=== PATIENT | male | born 1935 | race Caucasian/White ===

== ENCOUNTER 2018-09-02 09:43 | Day surgery (SDC) | payer OTHER ==
[~2018-09-02] VITALS: Ht 167.6 cm; Wt 48.1 kg
[2018-09-02] VITALS (16 sets, daily range): BP systolic 87–123; BP diastolic 47–61; PULSE 68–83; RESP 14–21; Ht 167.6 cm; Wt 48.1 kg
[2018-09-02] MEDS ORDERED: ASPI-903 PO (10:18)
[2018-09-02] MEDS ORDERED: METO-448 PO (10:18)
[2018-09-02] MEDS ORDERED: LIDOCAINE 1% (MPF) 30 ML INJ ONE (10:27)
[2018-09-02] MEDS ORDERED: BUPIVACAINE 0.25%/EPI (SDV) 30 ML INJ ONE (10:27)
[2018-09-02] MEDS ORDERED: LACTATED RINGER'S 1,000 ML IV SCH (11:00)
--- NOTE | 2018-09-02 11:20 | PREAC ---
Date/Time of Note Date/Time of Note DATE: 09/02/18 TIME: 11:17 Anesthesia Eval and Record Evaluation Time Pre-Procedure Interview DATE: 09/02/18 TIME: 11:17 Age 82 Sex male NPO: 8 hrs Preoperative diagnosis Bilateral Inguinal Hernia Planned procedure Laparoscopic vs Open Bilateral Inguinal Hernia Repair Past Medical History Past Medical History: Includes Cardio: Arrythmia (flutter) Surgery & Anesthesia Issues No known issue Meds Anticoagulation: No Beta Zoë within 24 hr: No Reason Beta Zoë not given: Pt. not on B-Zoë Reported Medications Metoprolol Tartrate* (Lopressor*) 25 Mg Tab, 25 MG PO DAILY, #60 TAB 09/02/18 Aspirin* (Aspirin* Chew) 81 Mg Tab.chew, 81 MG PO DAILY, TAB.CHEW 09/02/18 Current Medications Lactated Ringer's 1,000 ml @ 25 mls/hr Q24H IV ; Start 09/02/18 at 11:00 Meds reviewed: Yes Allergies Coded Allergies: No Known Allergy (Unverified , 09/02/18) Allergies Reviewed: Yes Labs/Studies Labs Reviewed: Reviewed by anesthesiologist test: N/A Pre-procedure Exam Last vitals Vital Signs Date Temp Pulse Resp B/P (MAP) Pulse Ox O2 O2 Flow FiO2 Time Delivery Rate 09/02/18 97.0 82 16 123/61 98 Room Air 10:44 (81) Airway: Adequate mouth opening, Adequate thyromental dist Mallampati: Mallampati II Teeth: Normal Lung: Normal Heart: Normal ASA Physical Status ASA physical status: 3 Emergency: None Planned Anesthetic General/MAC: ETT Nerve block: TAP (bilateral) Planned Pain Management Single shot nerve block, Parenteral pain med Pre-operative Attestations Prior to commencing anesthesia and surgery, the patient was re-evaluated, there was verification of: *The patient's identity *The results of appropriate recent lab work and preoperative vital signs *The above evaluation not changing prior to induction *Anesthetic plan, risk benefits, alternative and complications discussed with patient/family; questions answered; patient/family understands, accepts and wishes to proceed. BERHANE ZARAGOZA MD Sep 02, 2018 11:19
--- NOTE | 2018-09-02 11:20 | HPN ---
Date/Time of Note Date/Time of Note DATE: 09/02/18 TIME: 11:19 Interval H&P Admission Note Pt. seen H&P reviewed: No system changes JUAN CALI MD Sep 02, 2018 11:19
[2018-09-02] MEDS ORDERED: FENTAnyl 50 MCG/ML VIAL ONE (11:27)
[2018-09-02] MEDS ORDERED: METOPROLOL 5 MG INJ ONE (11:27)
[2018-09-02] MEDS ORDERED: ROCURONIUM 50 MG INJ ONE (11:27)
[2018-09-02] MEDS ORDERED: ROPIVACAINE 0.2% 20 ML VIAL ONE (11:27)
[2018-09-02] MEDS ORDERED: PROPOFOL 20 ML ONE (11:27)
[2018-09-02] MEDS ORDERED: CEFAZOLIN 1 GM INJ ONE (11:27)
[2018-09-02] MEDS ORDERED: SEVOFLURANE 15 MIN ONE (11:30)
[2018-09-02] MEDS ORDERED: PHENYLephrine (100 MCG/ML) 5ML SYG ONE (11:30)
[2018-09-02] MEDS ORDERED: EPHEDrine 25 MG/5 ML SYG ONE (11:30)
[2018-09-02] MEDS ORDERED: HETASTARCH 6% NACL 500 ML ONE (12:01)
[2018-09-02] MEDS ORDERED: DEXAMETHASONE 4 MG/ML 5 ML INJ ONE (12:58)
[2018-09-02] MEDS ORDERED: ONDANSETRON 4 MG INJ ONE (12:58)
[2018-09-02] MEDS ORDERED: METOCLOPRAMIDE 10 MG INJ ONE (12:58)
[2018-09-02] MEDS ORDERED: SUGAMMADEX SODIUM 200 MG/2 ML VIAL IV ONE (13:17)
--- NOTE | 2018-09-02 13:40 | PAC ---
Date/Time of Note Date/Time of Note DATE: 09/02/18 TIME: 13:40 Post-Anesthesia Notes Post-Anesthesia Note Last documented vital signs Vital Signs Date Temp Pulse Resp B/P (MAP) Pulse Ox O2 O2 Flow FiO2 Time Delivery Rate 09/02/18 98.0 13:37 09/02/18 98.0 82 16 123/61 98 Room Air 13:34 (81) Activity: WNL Respiratory function: WNL Cardiovascular function: WNL Mental status: Baseline Pain reasonably controlled: Yes Hydration appropriate: Yes Nausea/Vomiting absent: Yes BERHANE ZARAGOZA MD Sep 02, 2018 13:40
--- NOTE | 2018-09-02 13:53 | OPR ---
Date/Time of Note Date/Time of Note DATE: 09/02/18 TIME: 13:47 Operative Report Free Text/Dictation Preoperative Diagnosis 1. Left inguinal hernia 2. Right inguinal hernia Postoperative Diagnosis 1. Left inguinal direct and indirect hernias 2. Right inguinal direct and indirect hernias Operation/Procedure Performed 1. Laparoscopic bilateral inguinal herniorrhaphy 2. Local anesthetic [place], [address] Surgeon: Juan Cali MD Summer Intern: Susanne Zavala NP Anesthesia Type: general + local + regional Anesthesiologist: Jose Real MD Estimated Blood Loss: Less than 10 ml's Transfusion: None Specimen: Left hernia sac Grafts/Implants: 2(10 x 15) cm ventral light ST Bard meshes Tubes/Drains: None Complications: None Pt Condition Post Procedure: stable Disposition: PACU Indications: Symptomatic hernias here for surgical repair. Risks include but are not limited to bleeding, infection, abscess, seroma, hematoma, damage to intestines, damage to spermatic structures, loss of testicle, sensation loss to the thigh and scrotum, recurrence of hernia, chronic pain, need for re-operations or further surgeries, SD, stroke, PE, DVT, pneumonia, organ failures, or even . Procedure: Patient was brought and placed supine on the operating table SCDs were placed, preoperative antibiotics were administered, all pressure points were well- padded, both arms were tucked, and after induction of anesthesia patient was prepped and draped in usual sterile fashion and timeout was performed. Incision was made in the supraumbilical region. Veress was safely inserted, and after a negative SIP test, abdomen was insufflated to 15mmHg. Veress was removed and 12mm port was safely inserted. Laparoscopy was performed with a 5 mm 30 scope. No injuries were identified. Bilateral pantaloon hernias were identified. On either side of the abdomen, lateral to the rectus, avoiding the inferior epigastric vessels, 2 5 mm ports were inserted under direct visualization. All port sites were injected with quarter percent Marcaine with epi and 1% lidocaine prior to any incisions. Patient was placed in Trendelenburg and initially left and right side up. The peritoneum was opened over the side of the hernia and the peritoneum was dissected off of the abdominal wall, inferior epigastric vessels, and spermatic cord structures. Care was taken not to injure any of the structures. The pubic tubercle was identified medially. There was complete hemostasis. Ventral light ST mesh was placed at the inguinal site. Mesh was secured to the tubercle medially, anterior to the abdominal wall, and laterally to the abdominal wall using securestrap tacker. The mesh from either side overlap each other medially. The peritoneum was pulled over the mesh and secured to itself fully covering the mesh using the same tacker. This was done to both sides. 12 mm made port site fascia was closed with Endo Close and 0 Vicryl in a [id number] manner[after ventral patch was inserted to cover the hernia and secured to the fascia with 0 Vicryl through each leaf]. Ports and CO2 were removed under direct visualization. There was complete hemostasis. Wounds were thoroughly irrigated skin was closed with 4-0 Monocryl in subcuticular fashion. Dermabond was applied. Patient was extubated and transferred to recovery room in stable condition and all counts were correct and the end of the operation 2. JUAN CALI MD Sep 02, 2018 13:53
[2018-09-02] MEDS ORDERED: IBUPROFEN 600 MG TAB PO PRN (14:00)
[2018-09-02] MEDS ORDERED: ACETAMINOPHEN 325 MG TAB PO PRN (14:00)
[2018-09-02] MEDS ORDERED: ONDANSETRON 4 MG INJ IV PRN (14:00)
[2018-09-02] MEDS ORDERED: OXYCODONE/ACETAMINOPHEN (5/325) TAB PO PRN (14:00)
[2018-09-02] MEDS ORDERED: ALBUTEROL 0.083% (NEB) 2.5 MG/3 ML AMP HHN PRN (14:30)
[2018-09-02] MEDS ORDERED: IPRATROPIUM (NEB) 0.5 MG/2.5 ML AMP HHN PRN (14:30)
== END 2018-09-02 15:45 | disposition home or self-care (01) ==
LOC: SDS 09:43
PROVIDERS: ATTEND Surgery
DX: K40.20 Bilateral inguinal hernia, without obstruction or gangrene, not specified as recurrent (principal)
CPT/HCPCS: 49650; 88302; 94664; C1781; J0690; J1100; J2370; J2405; J2765; J2795; J3010; Z7512; Z7610